=== PATIENT | male | born 1980 | race Caucasian/White ===

== ENCOUNTER 2020-09-30 23:55 | Emergency (ER) | payer OTHER ==
[~2020-09-30] VITALS: Ht 185.4 cm; Wt 99.8 kg
--- NOTE | 2020-09-30 23:58 | NUR ---
PT BIBA BLS. TAKEN TO BED 9
[2020-10-01] VITALS: BP 107/70
--- NOTE | 2020-10-01 00:13 | NUR ---
PT BIBA FROM HOME WITH C/O ETOH, UNKNOWN AMOUNT OF VODKA CONSUMED. PT HAS RECENT LOSS OF HIS SISTER APPROXIMATELY 2-3 WEEKS AGO. PT HAS BEEN SOBER FOR YEARS BUT STATES DRINKING STARTED AFTER PASSING OF SISTER. VOMITED X1 PREHOSPITAL ARRIVAL. MEDHX: ALCOHOLISM ALLERGIE: NIK
--- NOTE | 2020-10-01 01:03 | NUR ---
Patient appears to be resting comfortably in bed. Vital Signs within normal limits. Respirations even and unlabored. NOTABLE RISE AND FALL OF CHEST. NO APPARENT DISTRESS AT THIS TIME. 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 BED LOCKED AND IN LOWEST POSITION. BED RAIL X 2. WILL CONTINUE TO MONITOR.
--- NOTE | 2020-10-01 01:44 | NUR ---
Patient appears to be resting comfortably in bed, AROUSABLE TO SPEECH. Vital Signs within normal limits. Respirations even and unlabored. DENIES ANY NEEDS AT THIS TIME. REMAINS ON MONITOR.
--- NOTE | 2020-10-01 02:15 | NUR ---
PT IS TEARFUL AT THIS TIME WHILE TALKING ABOUT LATE SISTER AND STATING "I JUST WANT MY TO KNOW IM SORRY." PT COMFORTED. ALL NEEDS MET AT THIS TIME. DENIES PAIN OR DISCOMFORT. ERMD AWARE OF PTS ALERTNESS.
--- NOTE | 2020-10-01 03:55 | NUR ---
ERMD AT BEDSIDE.
--- NOTE | 2020-10-01 04:32 | NUR ---
PT NOTED WITH BP 81/47. ERMD MADE AWARE. VERBAL ORDER FOR IV 1L NS BOLUS. ORDER PLACED.
[2020-10-01] MEDS ORDERED: NACL 0.9% 1,000 ML IV ONE (04:35)
--- NOTE | 2020-10-01 05:17 | NUR ---
Patient appears to be resting comfortably in bed. Vital Signs within normal limits. Respirations even and unlabored. NO NOTED DISTRESS AT THIS TIME. VERBALLY DENIES PAIN. WILL CONTINUE TO MONITOR.
--- NOTE | 2020-10-01 06:36 | NUR ---
PT AMBULATED 15 STEPS WITHOUT DIFFICULTY. ALERT AND ORIENTED. CALLED PTS , LYUDMILA ([phone]) FOR D/C, HOWEVER SHE STATED SHE LIVES IN [place] AND UNABLE TO INTERMODAL CUSTOMER SERVICE - INSTRUCTED TO CALL PTS DAD, JING ([phone]), NO ANSWER AT THIS TIME. WILL TRY AGAIN.
--- NOTE | 2020-10-01 06:40 | NUR ---
PTS FATHER, JING, CALLED AND STATED HE WILL BE ON HIS WAY TO [employer] TEAM LEAD PT.
--- NOTE | 2020-10-01 06:45 | NUR ---
Patient discharged with v/s stable. Written and verbal after care instructions given and explained. Patient verbalized understanding. Ambulatory with steady gait. All questions addressed prior to discharge. Advised to follow up with PMD.
[2020-10-01 06:51] VITALS: BP 102/67
== END 2020-10-01 06:45 | disposition home or self-care (01) ==
LOC: MED 23:55
DX: F10.129 Alcohol abuse with intoxication, unspecified (principal); Y90.9 Presence of alcohol in blood, level not specified
CPT/HCPCS: 96360; 99285; J7030